=== PATIENT | male | born 1970 | race Caucasian/White ===

== ENCOUNTER 2017-08-03 10:24 | Inpatient (IN) ==
[2017-08-03] MEDS ORDERED: Ondansetron ODT 4 MG TAB.RAPDIS SL ONE (10:57)
--- NOTE | 2017-08-03 11:01 | Emergency Department Note ---
Disposition Clinical Impression: Small bowel obstruction Nausea and vomiting Qualifiers: Vomiting type: unspecified Vomiting Intractability: non-intractable Qualified Code(s): R11.2 - Nausea with vomiting, unspecified Disposition: Admitted As Inpatient Condition: Fair Referrals: Bc Ramirez Jr, MD [Primary Care Provider] - Forms: ED Satisfaction Letter Time of Disposition: 15:05 General Adult HPI - General Chief complaint: ED Shortness of Breath/Dyspnea Stated complaint: multiple complaints Time Seen by Provider: 08/03/17 10:29 Source: patient Limitations: no limitations Nursing Notes Reviewed: Yes Vital Signs Reviewed: Yes - History of Present Illness HPI Narrative: Mr. Patton, 46-year-old male, presents from home for evaluation of nausea, vomiting, upper abdominal pain, dyspnea worse with exertion. Onset last night. He has vomited innumerable times but is able to describe it other than it smells sulfuric. He has thoracic back pain worse with retching. He has upper abdominal pain worse with retching. He also notes left-sided rib pain in the posterior axillary line and his abdominal pain is most prominent in the left upper quadrant; these symptoms remind him of previous episode of pneumonia. PMH: Obesity, remote Kumar-en-Y, bipolar, schizophrenia History of COPD, asthma, CAD, ACS, hypertension, hyperlipidemia ROS: Positive: As above Negative: Fever, chills, loose bowels, headache, neck pains, sick contacts, melena, hematochezia Pain Scale: 9 - Related Data Home Medications Medication Instructions Recorded Confirmed ALPRAZolam [Xanax 1 MG Tablet] 0.5 - 1 mg PO QID PRN 08/03/17 08/03/17 Cyclobenzaprine HCl 10 mg PO TID 08/03/17 08/03/17 [Cyclobenzaprine HCl] HYDROcodone/Acet 10/325 mg [[place] 1 tab PO Q6HR PRN 08/03/17 08/03/17 10-325 mg] Sertraline [Zoloft] 250 mg PO HS 08/03/17 08/03/17 cloZAPine [Clozaril] 600 mg PO HS 08/03/17 08/03/17 Allergies Allergy/AdvReac Type Severity Reaction Status Date / Time No Known Allergies Allergy Verified 02/17/17 13:39 All systems ED: reviewed and negative except as stated. Review of Systems: As Per HPI Past Medical History - Past Medical History Medical history: Reports: non-contributory Psychiatric history: Reports: bipolar, schizophrenia - Social History Smoking Status: Former smoker Smokeless Tobacco Status: No Alcohol use: Reports: none Drug use: Reports: none Physical Exam Vital Signs Reviewed General: Patient is alert, oriented, and in no acute distress. HEENT: No facial asymmetry. Head is normocephalic and atraumatic. Mucosa moist. Trachea midline. Respiratory: Symmetric chest rise with good respiratory effort. Bilateral breath sounds are clear without wheezing, crackles, or rhonchi. Abdomen: Obese. Bowel sounds present normoactive x-4 quadrants. Abdomen is soft, nondistended. Upper abdominal tenderness most prominent in the left upper quadrant. No rebound tenderness, no guarding. No tympany. Musculoskeletal: Spontaneously moving all extremities. Neuro: GCS 15. Skin: Warm, dry, intact. Psych: Patient's affect is appropriate for situation. - General Limitations: no limitations General appearance: alert, in no apparent distress Course Course Narrative: Initial concern is for possible small bowel structure given history of Kumar-en- Y. Perform CT abdomen and pelvis. We will also draw abdominal labs looking for alternate causes. We will control patient's symptoms with nausea. No need for analgesia per patient at this time. CT of the pelvis is concerning for small bowel obstruction just below the Kumar- en-Y anastomosis. I discussed these findings the patient. He is amenable to admission with NG tube. I discussed the patient, his history, clinical condition, and CT findings with the on-call surgeon, Dr. Paredes. He agrees to see the patient as consult medical admission. He specifically requests that the admitting physician call him directly. I discussed the patient with the admitting hospitalist, Dr. Vela, who agrees to accept the patient for continued evaluation and management. Vital Signs Temperature 98.6 F 08/03/17 10:25 Pulse Rate 105 08/03/17 10:25 Respiratory Rate 24 08/03/17 10:25 Blood Pressure 146/72 08/03/17 10:25 O2 Sat by Pulse Oximetry 96 08/03/17 10:25 Temperature 98.6 F 08/03/17 10:25 Pulse Rate 99 08/03/17 15:03 Respiratory Rate 18 08/03/17 15:03 Blood Pressure 162/98 08/03/17 15:03 O2 Sat by Pulse Oximetry 93 08/03/17 15:03 Oxygen Delivery Oxygen Delivery Room Air Medical Decision Making - Lab Data Result diagrams: 08/03/17 11:02 08/03/17 11:02 Lab Results 08/03/17 08/03/17 Range/Units 11:02 11:02 WBC 7.3 (4.3-11.1) K/mcL RBC 4.59 (4.19-5.50) M/mcL Hgb 13.2 (12.9-16.9) g/dL Hct 40.6 (37.5-50.1) % MCV 88.5 (83.0-100.0) fL MCH 28.8 (28.0-33.3) pg MCHC 32.5 (31.6-35.5) g/dL RDW 13.4 (11.5-14.5) % Plt Count 154 (140-400) K/mcL MPV 10.6 (9.4-12.4) fL Immature Gran % 0.3 (0-4) % Seg Neutrophils % 82.5 % Lymphocytes % 12.8 % Monocytes % 4.4 % Eosinophils % 0.0 % Basophils % 0.0 % Neutrophils # 6.1 (1.6-8.9) K/mcL Lymphocytes # 0.9 (0.6-4.6) K/mcL Monocytes # 0.3 (0.0-1.3) K/mcL Eosinophils # 0.0 (0.0-0.6) K/mcL Basophils # 0.0 (0.0-0.2) K/mcL Immature Plt Fraction 6.6 H (1.1-6.1) % Sodium 135 L (136-145) mEq/L Potassium 4.1 (3.5-4.5) mEq/L Chloride 102 (98-109) mEq/L Carbon Dioxide 24 (19-29) mEq/L BUN 11 (8-26) mg/dL Creatinine 0.81 (0.72-1.25) mg/dL Est GFR ( Amer) > 60 (> 60) Est GFR (Non-Af Amer) > 60 (> 60) BUN/Creatinine Ratio 14 (6-26) Glucose 184 H (70-99) mg/dL Calculated Osmolality 284 (280-300) Calcium 8.9 (8.6-10.8) mg/dL Total Bilirubin 0.5 (0.2-1.2) mg/dL Direct Bilirubin 0.5 (0.0-0.5) mg/dL Indirect Bilirubin 0.0 (0.0-1.2) mg/dL AST 30 (5-34) Units/L ALT 19 (0-55) Units/L Alkaline Phosphatase 100 (38-126) Units/L Serum Total Protein 7.0 (6.0-8.3) g/dL Albumin 4.0 (3.5-5.0) g/dL Globulin 3.0 (2.4-3.5) g/dL Albumin/Globulin Ratio 1.3 (1.1-2.2) Lipase < 10 (8-78) Units/L Attestation Statement - Attestation Attestation: Patient was seen with resident physician. I reviewed the history, physical, assessment and plan, and agree with the findings. I also personally evaluated this patient and had [id number] time with this patient. 46-year-old male presents emergency Department one-day history of uncontrolled nausea and vomiting. Patient's also had some midepigastric abdominal pain. He notes this is worse with throwing up. Patient also states that he has a thoracic back pain which he said he had last time he had pneumonia and was concerned that he may have that again. Other than that he denies complaints. On exam vital signs are stable. ENT is unremarkable. Heart and lungs are both normal. Abdomen minimally tender in the midepigastric area. Patient is markedly obese and it is difficult to assess fully. Extremities unremarkable. Neurologically the patient is intact. ED course we will get a chest x-ray to rule out pneumonia [place] CT scan the abdomen and pelvis to get a better sense of what might be causing his epigastric pain usual labs as well. We will treat his nausea and reevaluate the patient. CT scan of the abdomen and pelvis revealed a small bowel obstruction. Labs largely were unremarkable. His nausea was controlled with medication. He is started on IV hydration. We discussed the case with surgery. They recommended an NG tube and admit to medicine. We also then called the internal medicine doctors and arrange for him to be admitted to the hospitalist service. They agreed to accept the patient. Hemodynamically he remained stable while in the emergency department. I agree with the resident physician assessment and plan.
[2017-08-03 11:08] LABS: Hematocrit 40.6 % (37.5-50.1); Hemoglobin 13.2 g/dL (12.9-16.9); Immature Granulocytes % 0.3 % (0-4); Immature Platelets 6.6 % (1.1-6.1); Lymphocytes # 0.9 K/mcL (0.6-4.6); Lymphocytes % 12.8 %; Mean Corpuscular HGB Conc 32.5 g/dL (31.6-35.5); Mean Corpuscular Hemoglobin 28.8 pg (28.0-33.3); Mean Corpuscular Volume 88.5 fL (83.0-100.0); Mean Platelet Volume 10.6 fL (9.4-12.4); Monocytes # 0.3 K/mcL (0.0-1.3); Monocytes % 4.4 %; Neutrophils # 6.1 K/mcL (1.6-8.9); Platelet Count 154 K/mcL (140-400); Red Blood Count 4.59 M/mcL (4.19-5.50); Red Cell Distribution Width 13.4 % (11.5-14.5); Segmented Neutrophils % 82.5 %
[2017-08-03 11:23] LABS: Alanine Aminotransferase 19 Units/L (0-55); Albumin/Globulin Ratio 1.3 (1.1-2.2); Alkaline Phosphatase 100 Units/L (38-126); Aspartate Amino Transferase 30 Units/L (5-34); BUN/Creatinine Ratio 14 (6-26); Bilirubin,Direct 0.5 mg/dL (0.0-0.5); Bilirubin,Total 0.5 mg/dL (0.2-1.2); Blood Urea Nitrogen 11 mg/dL (8-26); Calcium 8.9 mg/dL (8.6-10.8); Carbon Dioxide 24 mEq/L (19-29); Chloride 102 mEq/L (98-109); Glucose 184 mg/dL (70-99); Osmolality,Calculated 284 (280-300); Potassium 4.1 mEq/L (3.5-4.5); Sodium 135 mEq/L (136-145); eGFR For African Americans > 60 (> 60); eGFR For Non-African Americans > 60 (> 60)
[2017-08-03 11:24] LABS: Lipase < 10 Units/L (8-78)
[2017-08-03] MEDS ORDERED: Naloxone 0.4 MG/ML INJ IVP PRN (16:02)
[2017-08-03] MEDS ORDERED: Ondansetron 4 MG/2 ML VIAL IVP PRN (16:02)
[2017-08-03] MEDS ORDERED: 0.9 % Sodium Chloride 500 ML IVC ONE (16:08)
--- NOTE | 2017-08-03 16:16 | Internal Med History&Physical ---
<Amalia Antoine - Last Filed: 08/03/17 18:20> Date of Encounter: 08/03/17 Time of Encounter: 16:15 Assessment and Plan (1) Small bowel obstruction Current visit: Yes Status: Acute 1 . Patient has a past history of gastric bypass in 2000. He has been experiencing nausea vomiting abdominal pain for the past [address] of abdomen did not reveal small bowel obstruction due to jejunal anastomosis in the mid lower abdomen. Surgery has been consult I did speak with Dr. Street. NG has been placed per his request-we will continue low wall suction 2 we will continue nothing by mouth-I did discuss with Dr. Vela patient's psychiatric medication management. We will give psych meds per NG-otherwise nothing by mouth 3 give IV fluids 4 monitor electrolytes (2) Schizophrenia Current visit: No Status: Chronic 1 presently he is stable, we will continue with his home medications Qualifiers: Schizophrenia type: unspecified Qualified Code(s): F20.9 - Schizophrenia, unspecified (3) Chronic pain Current visit: No Status: Chronic 1 patient has standing history of chronic back pain, we will continue with morphine for moderate pain and Dilaudid for severe pain Qualifiers: Chronic pain type: other chronic pain Qualified Code(s): G89.29 - Other chronic pain (4) DVT prophylaxis Current visit: Yes Status: Acute [facility] Internal Medicine - H&P: HPI Chief complaint: N/V Admitted From: Emergency Dept Plans for Post Hospital Care: Home History of present illness: Mr. Patton is a 46 year old male past medical history of morbid obesity gastric bypass bipolar schizophrenia. Patient did have gastric bypass surgery in 2000, [facility] per Dr. Gama Paz. According to the patient he has been experiencing nausea vomiting and upper abdominal pain which is worse after vomiting within the past 24 hours. He began vomiting numerous times throughout the night, he was unable to eat or keep anything down. He denies any hematemesis, hematochezia or melenic stools denies any fevers chills chest pain he has had some dyspnea on exertion. He has been experiencing flatus He presented to the ER with the above complaints. Lab work was unremarkable CT of abdomen was consistent with small bowel obstruction near the jejunal anastomosis in the mid lower abdomen. ER physician did contact the on-call surgeon Dr. Street. NG has been placed with low wall suction. He has been admitted for further workup and evaluation. Presently the patient does not appear to be in any respiratory distress he states that his abdominal pain has improved since she has been placed. I did review this case with Dr. Vela who agrees with plan. Past Med Surg Social Fam HX - Past Medical History Medical history: non-contributory Psychiatric history: bipolar, schizophrenia - Social History Smoking Status: Former smoker Smokeless Tobacco Status: No Alcohol use: none Drug use: none - Family History Father History Unknown: Yes Living Status: Still Living Hx Family Cardiac Disorders: No Hx Family Respiratory Disorders: No Hx Family Cancer: No Hx Family GI Disorders: No Hx Family Genitourinary Disorders: No Hx Family Endocrine Disorder: Yes (DM) Hx Family Musculoskeletal Disorders: No Hx Family Neuromuscular Disorders: No Hx Family Neurologic Disorders: No Hx Family HEENT Disorders: No Hx Family Autoimmune Disorders: No Hx Family Reproductive Disorders: No Hx Family Psychosocial Disorders: No Hx Family Medical Disorders: No Internal Medicine - H&P: Meds ALPRAZolam [Xanax 1 MG Tablet] 0.5 - 1 mg PO QID PRN 08/03/17 [History] Cyclobenzaprine HCl [Cyclobenzaprine HCl] 10 mg PO TID 08/03/17 [History] HYDROcodone/Acet 10/325 mg [[place] 10-325 mg] 1 tab PO Q6HR PRN 08/03/17 [History ] Sertraline [Zoloft] 250 mg PO HS 08/03/17 [History] cloZAPine [Clozaril] 600 mg PO HS 08/03/17 [History] 3 Allergy/AdvReac Type Severity Reaction Status Date / Time No Known Allergies Allergy Verified 02/17/17 13:39 All Systems PM: A 10-system review of systems was performed and is negative for pertinent findings except as documented above in the HPI. - Constitutional Constitutional: no chills, no fever(s), no night sweats - EENT Eyes: no change in vision, no discharge, no pain, no photophobia Nose, mouth and throat: no dysphagia, no nasal discharge, no neck pain, no sore throat - Cardiovascular Cardiovascular ROS IM: dyspnea on exertion, no chest pain, no diaphoresis, no dyspnea, no lightheadedness, no palpitations, no syncope - Respiratory Respiratory: no cough, no dyspnea, no wheezing, no excessive phlegm production - Gastrointestinal Gastrointestinal: abdominal pain, nausea, vomiting - Musculoskeletal Musculoskeletal ROS IM: no numbness, no tingling - Integumentary Integumentary IM: no rash, no unusual bruising - Neurological Neurological ROS: no confusion, no convulsions, no focal weakness, no numbness, no tingling, no tremor(s) - Hematologic/Lymphatic Hematologic/Lymphatic: no easy bruising - Constitutional Vitals: Temp Pulse Resp BP Pulse Ox 98.6 F 99 18 162/98 93 08/03/17 10:25 08/03/17 15:03 08/03/17 15:03 08/03/17 15:03 08/03/17 15:03 General appearance: Present: A&O X 3, morbidly obese, answers questions appropriately - Head Head exam: Present: atraumatic, normocephalic - Eye Eye exam: Present: PERRL, conjuntiva pink, sclera anicteric Pupils: Present: PERRL - Neck Neck exam general surgery: Present: supple, trachea midline. Absent: lymphadenopathy - Respiratory Respiratory exam: Present: CTAB. Absent: accessory muscle use, rales, rhonchi, wheezes - Cardiovascular Cardiovascular exam: Present: RRR, +S1, +S2. Absent: diastolic murmur, gallop, rubs, systolic murmur - GI/Abdominal GI/Abdominal exam: Present: normal bowel sounds, soft, no peritoneal signs. Absent: distended, tenderness - Extremities Exam Extremities exam: Present: warm, radial pulses palpable and symmetrical. Absent : calf tenderness, cyanotic, pedal edema - Neurological Exam Neurological exam: Present: CN II-XII intact, oriented X3, no focal deficits. Absent: pronater drift, facial droop, speech deficit - Skin Skin exam: Present: dry, intact Internal Med - H&P Results - Labs CBC & Chem 7: 08/03/17 11:02 08/03/17 11:02 - Diagnostic Studies Other Images Additional comments: Chest X-Ray 08/03/17 10:51 IMPRESSION: Stable negative chest. D/ / Mika Rinaldi MD / Mika Rinaldi MD Interpreting Provider: Mika Rinaldi MD Abdomen/Pelvis CT 08/03/17 11:02 IMPRESSION: 1. Status post gastric bypass surgery with findings consistent with small-bowel obstruction near the jejunal anastomosis in the mid lower abdomen. 2. No evidence of perforation or abscess. 3. Hepatosplenomegaly with severe hepatic steatosis. D/ / 08/03/2017 12:35:21 Dallas Ahmadi MD / aman Interpreting Provider: Dallas Ahmadi MD <Wayne Vela P - Last Filed: 08/04/17 13:31> Date of Encounter: 08/04/17 Internal Medicine - H&P: HPI History of present illness: Mr. Patton is a 46 year old male All Systems PM: A 10-system review of systems was performed and is negative for pertinent findings except as documented above in the HPI. - Constitutional Vitals: Temp Pulse Resp BP Pulse Ox 98.1 F 97 20 126/81 95 08/04/17 10:55 08/04/17 10:55 08/04/17 10:55 08/04/17 10:55 08/04/17 10:55 Internal Med - H&P Results - Labs CBC & Chem 7: 08/04/17 05:09 08/04/17 05:09 Labs: Short CBC 08/04/17 Range/Units 05:09 WBC 8.4 (4.3-11.1) K/mcL Hgb 12.3 L (12.9-16.9) g/dL Hct 38.6 (37.5-50.1) % Plt Count 129 L (140-400) K/mcL Neutrophils # 7.0 (1.6-8.9) K/mcL BMP 08/04/17 05:09 Sodium 139 Potassium 3.8 Chloride 106 Carbon Dioxide 24 BUN 10 Creatinine 0.79 Glucose 172 H Calcium 7.8 L Urine 08/04/17 Range/Units 04:34 Urine Color Yellow (Yellow) Urine Clarity Clear (Clear) Urine pH 6.0 (5.0-8.0) pH Units Ur Specific [place] 1.019 (1.010-1.025) Urine Protein Negative (Neg-Trace) mg/dL Urine Glucose (UA) Normal (Normal) mg/dL - Attending Attestation I examined this patient and my medical decision-making was reviewed with the Resident Physician/ [employer] [employer]. I agree with the documented findings, disposition and treatment plan as described except to the extent set forth below.
[2017-08-03] MEDS: 0.9 % Sodium Chloride 1,000 ML IVC SCH (18:23)
--- NOTE | 2017-08-03 19:16 | Event Note ---
Date of Encounter: 08/03/17 Time of Encounter: 16:45 Was notified per nursing staff that patient's NG had come out and he was refusing replacement. I did speak with the patient and explained the medicall necessity of the NG. He verbalizes understanding however he continued to refuse. Dr. Vela also speaks with patient and again reemphasizes the importance of NG. Patient continues to refuse placement. Dr. Smith did speak with Dr. Street via telephone and explained and she was out and the patient refusing replacement. Per Mirian- Dr Paredes OK to leave NG out
[2017-08-03] MEDS: ALPRAZolam 1 MG TABLET PO PRN (20:56)
[2017-08-03] MEDS: cloZAPine 100 MG TABLET PO SCH (20:58)
[2017-08-04] MEDS: 0.9 % Sodium Chloride 1,000 ML IVC SCH ×2 (04:32→12:32)
[2017-08-04 04:46] LABS: Bilirubin,Urine Negative (Negative); Blood,Urine Negative (Negative); Clarity,Urine Clear (Clear); Color,Urine Yellow (Yellow); Glucose,Urine (UA) Normal (Normal); Ketones,Urine Negative (Negative); Leukocyte Esterase,Urine Negative (Negative); Nitrite,Urine Negative (Negative); Protein,Urine Negative (Neg-Trace); Specific Gravity,Urine 1.019 (1.010-1.025); Urobilinogen,Urine Normal (Normal)
[2017-08-04 05:36] LABS: Basophils % 0.1 %; Hematocrit 38.6 % (37.5-50.1); Hemoglobin 12.3 g/dL (12.9-16.9); Immature Granulocytes % 0.4 % (0-4); Lymphocytes % 11.7 %; Mean Corpuscular HGB Conc 31.9 g/dL (31.6-35.5); Mean Corpuscular Hemoglobin 28.7 pg (28.0-33.3); Mean Platelet Volume 10.9 fL (9.4-12.4); Monocytes # 0.4 K/mcL (0.0-1.3); Monocytes % 4.8 %; Platelet Count 129 K/mcL (140-400); Red Blood Count 4.29 M/mcL (4.19-5.50); Red Cell Distribution Width 13.6 % (11.5-14.5)
[2017-08-04 05:45] LABS: BUN/Creatinine Ratio 13 (6-26); Blood Urea Nitrogen 10 mg/dL (8-26); Calcium 7.8 mg/dL (8.6-10.8); Carbon Dioxide 24 mEq/L (19-29); Chloride 106 mEq/L (98-109); Glucose 172 mg/dL (70-99); Magnesium 1.8 mg/dL (1.6-2.6); Osmolality,Calculated 291 (280-300); Phosphorous 2.5 mg/dL (2.3-4.7); Potassium 3.8 mEq/L (3.5-4.5); Sodium 139 mEq/L (136-145); eGFR For African Americans > 60 (> 60); eGFR For Non-African Americans > 60 (> 60)
[2017-08-04] MEDS: *HR* Enoxaparin 40 MG/0.4 ML SYRINGE SQ SCH (06:35)
[2017-08-04] MEDS: Pantoprazole 40 MG VIAL IVP SCH (08:25)
[2017-08-04] MEDS: *HR* HYDROmorphone (PF) 1 MG/ML SYRINGE IVP PRN ×3 (08:26→16:34)
--- NOTE | 2017-08-04 12:13 | General Surgery Consult Note ---
Date of Encounter: 08/04/17 Time of Encounter: 12:09 History of Present Illness Consult date: 08/03/17 Requesting physician: Robert Meza History of present illness: Patient seen and examined. NG placed in ED removed by patient, re insertion refused by patient. Abdominal pain/distress, N&V resolved since admission Abdomen soft, nontender. Active bowel sounds. CT personally reviewed with [facility]; labs also reviewed Recommendation - SBFT More complete note pertaining to my evaluation and discussion with the patient pending. Past Med Surg Social Fam HX - Past Medical History Medical history: non-contributory Psychiatric history: bipolar, schizophrenia - Social History Smoking Status: Former smoker Smokeless Tobacco Status: No Alcohol use: none Drug use: none - Family History Father History Unknown: Yes Living Status: Still Living Hx Family Cardiac Disorders: No Hx Family Respiratory Disorders: No Hx Family Cancer: No Hx Family GI Disorders: No Hx Family Genitourinary Disorders: No Hx Family Endocrine Disorder: Yes (DM) Hx Family Musculoskeletal Disorders: No Hx Family Neuromuscular Disorders: No Hx Family Neurologic Disorders: No Hx Family HEENT Disorders: No Hx Family Autoimmune Disorders: No Hx Family Reproductive Disorders: No Hx Family Psychosocial Disorders: No Hx Family Medical Disorders: No Medications and Allergies ALPRAZolam [Xanax 1 MG Tablet] 0.5 - 1 mg PO QID PRN 08/03/17 [History] Cyclobenzaprine HCl [Cyclobenzaprine HCl] 10 mg PO TID 08/03/17 [History] HYDROcodone/Acet 10/325 mg [[place] 10-325 mg] 1 tab PO Q6HR PRN 08/03/17 [History ] Sertraline [Zoloft] 250 mg PO HS 08/03/17 [History] cloZAPine [Clozaril] 600 mg PO HS 08/03/17 [History] 3 Allergy/AdvReac Type Severity Reaction Status Date / Time No Known Allergies Allergy Verified 02/17/17 13:39 Review of Systems All systems PM: A 10-system review of systems was performed and is negative for pertinent findings except as documented above in the HPI. General Surgery Exam Initial Vital Signs Temp Pulse Resp BP Pulse Ox 98.6 F 105 24 146/72 96 08/03/17 10:25 08/03/17 10:25 08/03/17 10:25 08/03/17 10:25 08/03/17 10:25 Exam Initial Vital Signs Temp Pulse Resp BP Pulse Ox 98.6 F 105 24 146/72 96 08/03/17 10:25 08/03/17 10:25 08/03/17 10:25 08/03/17 10:25 08/03/17 10:25 Results - Labs 08/04/17 05:09 08/04/17 05:09 Abnormal lab results Hgb 12.3 g/dL (12.9-16.9) L 08/04/17 05:09 Plt Count 129 K/mcL (140-400) L 08/04/17 05:09 Immature Plt Fraction 6.6 % (1.1-6.1) H 08/03/17 11:02 Glucose 172 mg/dL (70-99) H 08/04/17 05:09 POC Glucose 117 (58-89) H 08/04/17 11:52 Calcium 7.8 mg/dL (8.6-10.8) L 08/04/17 05:09 Diabetes panel 08/04/17 Range/Units 05:09 Sodium 139 (136-145) mEq/L Potassium 3.8 (3.5-4.5) mEq/L Chloride 106 (98-109) mEq/L Carbon Dioxide 24 (19-29) mEq/L BUN 10 (8-26) mg/dL Creatinine 0.79 (0.72-1.25) mg/dL Glucose 172 H (70-99) mg/dL Calcium 7.8 L (8.6-10.8) mg/dL Calcium panel 08/04/17 Range/Units 05:09 Calcium 7.8 L (8.6-10.8) mg/dL Phosphorus 2.5 (2.3-4.7) mg/dL Pituitary panel 08/04/17 Range/Units 05:09 Sodium 139 (136-145) mEq/L Potassium 3.8 (3.5-4.5) mEq/L Chloride 106 (98-109) mEq/L Carbon Dioxide 24 (19-29) mEq/L BUN 10 (8-26) mg/dL Creatinine 0.79 (0.72-1.25) mg/dL Glucose 172 H (70-99) mg/dL Calcium 7.8 L (8.6-10.8) mg/dL Adrenal panel 08/04/17 Range/Units 05:09 Sodium 139 (136-145) mEq/L Potassium 3.8 (3.5-4.5) mEq/L Chloride 106 (98-109) mEq/L Carbon Dioxide 24 (19-29) mEq/L BUN 10 (8-26) mg/dL Creatinine 0.79 (0.72-1.25) mg/dL Glucose 172 H (70-99) mg/dL Calcium 7.8 L (8.6-10.8) mg/dL All other labs normal. Consult Discharge Plan - Plan Referrals: Bc Ramirez Jr, MD [Primary Care Provider] -
[2017-08-04] MEDS: ALPRAZolam 1 MG TABLET PO PRN ×2 (12:31→16:34)
[2017-08-04] MEDS: cloZAPine 100 MG TABLET PO SCH (21:42)
[2017-08-04] MEDS: *HR* Morphine 2 MG/ML SYRINGE IVP PRN (21:51)
[2017-08-05] MEDS: 0.9 % Sodium Chloride 1,000 ML IVC SCH (01:46)
--- NOTE | 2017-08-05 05:19 | Internal Med Progress Note ---
Date of Encounter: 08/04/17 Time of Encounter: 17:40 - Assessment and plan (1) Small bowel obstruction Current Visit: Yes Status: Acute Assessment and plan: Doing better. Patient pulled NG tube out shortly after admission. He refuses to put it back in. He insists "I feel fine". Surgery team following, recommendations appreciated. Sbft pending read. (2) Schizophrenia Current Visit: No Status: Chronic Assessment and plan: Clozapine Qualifiers: Schizophrenia type: unspecified Qualified Code(s): F20.9 - Schizophrenia, unspecified (3) Chronic pain Current Visit: No Status: Chronic Qualifiers: Chronic pain type: other chronic pain Qualified Code(s): G89.29 - Other chronic pain (4) DVT prophylaxis Current Visit: Yes Status: Acute - Subjective Interval history: No acute events, Just returned from SBFT. No complaints. - Constitutional Vitals: Temp Pulse Resp BP Pulse Ox 97.9 F 99 18 160/79 91 08/05/17 03:25 08/05/17 03:25 08/05/17 03:25 08/05/17 03:25 08/05/17 03:25 General appearance: Present: A&O X 3, morbidly obese, answers questions appropriately Exam: Morbidly obese CVS: RRR Lungs: CTAB Abd: surgical scars present midabdomen, soft, nt/nd Ext: no edema Internal Medicine: Result - Labs CBC & Chem 7: 08/04/17 05:09 08/04/17 05:09 Labs: Short CBC 08/04/17 Range/Units 05:09 WBC 8.4 (4.3-11.1) K/mcL Hgb 12.3 L (12.9-16.9) g/dL Hct 38.6 (37.5-50.1) % Plt Count 129 L (140-400) K/mcL Neutrophils # 7.0 (1.6-8.9) K/mcL BMP 08/04/17 05:09 Sodium 139 Potassium 3.8 Chloride 106 Carbon Dioxide 24 BUN 10 Creatinine 0.79 Glucose 172 H Calcium 7.8 L - Impressions Impressions Small Bowel X-Ray 08/04/17 12:13 IMPRESSION: On the country singer film, proximal small bowel loops in the left upper quadrant were dilated. By the end of the exam. Proximal small bowel dilation is no longer evident. In addition, contrast reaches the colon by the end of the exam without evidence of a high-grade obstruction. D/ / Serge Ramirez MD / Serge Ramirez MD Interpreting Provider: Serge Ramirez MD Consult Discharge Plan - Plan Referrals: Bc Ramirez Jr, MD [Primary Care Provider] -
[2017-08-05] MEDS: ALPRAZolam 1 MG TABLET PO PRN (05:23)
[2017-08-05] MEDS: *HR* Enoxaparin 40 MG/0.4 ML SYRINGE SQ SCH (05:26)
[2017-08-05] MEDS: Pantoprazole 40 MG VIAL IVP SCH (08:31)
[2017-08-05] MEDS: *HR* Morphine 2 MG/ML SYRINGE IVP PRN (08:32)
[2017-08-05 11:43] VITALS: BP 127/78
[2017-08-05] MEDS ORDERED: 0.9 % Sodium Chloride 1,000 ML IVC SCH (12:06)
[2017-08-05] MEDS ORDERED: 0.9 % Sodium Chloride 1,000 ML ONE (12:38)
--- NOTE | 2017-08-05 13:44 | General Surgery Progress Note ---
Date of Encounter: 08/05/17 Time of Encounter: 13:39 Subjective Patient reports: tolerating liquids well Narrative: General Surgery - patient feeling well, denies any abdominal pain, no recurrent nausea vomiting Tolerating clear liquids; Several BMs thru the night and today Patient anxious to be discharged home Small bowel follow-through were reviewed with [facility] including 2V abdominal films this AM. Oral contrast has passed thru to the colon. Prior small bowel dilatation resolved. Abdominal x-rays completed this AM show air filled bowel and colon. No obvious obstructive pattern. Recommendation - Full liquid diet, may advance as tolerated Will sign off as no surgical intervention required or anticipated No surgical follow up post discharge - patient should follow up with his PCP. Objective Vital Signs - Last 8 Hours Temp Pulse Resp BP Pulse Ox 08/05/17 11:42 98.2 F 100 16 127/78 96 08/05/17 07:05 98.6 F 98 22 144/83 94 Intake and Output 08/04/17 08/05/17 08/05/17 23:59 07:59 15:59 Intake Total 1120 / 1120 120 / 120 1360 / 1360 Output Total 0 / 0 0 / 0 0 / 0 Balance 1120 / 1120 120 / 120 1360 / 1360 Intake: IV Fluids 1000 / 1000 1000 / 1000 0.9 % Sodium Chloride 1,000 ML 1000 / 1000 1000 / 1000 @ 100 mls/hr IVC .Q10H RASHMI Rx#: [id number] Oral 120 / 120 120 / 120 360 / 360 Output: Urine 0 / 0 0 / 0 0 / 0 Other: Meal Dinner NPO Breakfast Stool Size Large Stool Consistency liquid Stool Color Dieudonne Colored # Voids 1 # Bowel Movements 1 Weight 201.077 kg Blood Glucose* 143 Patient Weight 08/05/17 23:59 Weight 201.077 kg - Labs 08/04/17 05:09 08/04/17 05:09 Consult Discharge Plan - Plan Referrals: Bc Ramirez Jr, MD [Primary Care Provider] -
--- NOTE | 2017-08-05 14:11 | Discharge Summary ---
Date of Encounter: 08/05/17 Time of Encounter: 14:00 - Discharge Diagnosis (1) Small bowel obstruction Priority: Primary Status: Resolved (2) Schizophrenia Priority: Secondary Status: Chronic Qualifiers: Schizophrenia type: unspecified Qualified Code(s): F20.9 - Schizophrenia, unspecified (3) Chronic pain Priority: Secondary Status: Chronic Qualifiers: Chronic pain type: other chronic pain Qualified Code(s): G89.29 - Other chronic pain (4) DVT prophylaxis Priority: Secondary Status: Acute - Discharge Medications Home Medications: ALPRAZolam [Xanax 1 MG Tablet] 0.5 - 1 mg PO QID PRN 08/03/17 [History] Cyclobenzaprine HCl 10 mg PO TID 08/03/17 [History] HYDROcodone/Acet 10/325 mg [[place] 10-325 mg] 1 tab PO Q6HR PRN 08/03/17 [History ] Sertraline [Zoloft] 250 mg PO HS 08/03/17 [History] cloZAPine [Clozaril] 600 mg PO HS 08/03/17 [History] Allergies/Adverse Reactions: 3 Allergy/AdvReac Type Severity Reaction Status Date / Time No Known Allergies Allergy Verified 02/17/17 13:39 Procedures/tests Complete & Pending: Procedures Performed prior 72 hours Category Date Time Status EKG [ECG 12 lead ECG] [ECG] Routine Y 08/03/17 16:10 Ordered Date of admission: 08/03/17 16:02 Primary care physician: Bc Ramirez Jr, MD Consults: 08/03/17 14:37 Consult to Surgery [CONS] Routine Consulting Provider: Surgery [facility] Reason for Consult: SBO. Remote Reux-En-Y. Time Notified: 14:37 Call Completed: Yes Discharging clinician: Miki Bryan Anticipated date of discharge: 08/05/17 - Patient Status Disposition: Home, Self-Care Condition: Good Functional capacity at discharge: independent ambulation Overall status at discharge: patient is progressing back to baseline - Discharge Instructions Follow Up With: Bc Ramirez Jr, MD [Primary Care Provider] - (in 1 -2 weeks) - Diet and Activity Activity: increase activity as tolerated Diet: advance to your usual diet, low fat, low cholesterol, low salt diet Hospital course: Mr. Patton is a 46 year old male patient with a history of moderate obesity status post gastric bypass, bipolar disorder and should refrain was admitted here with abdominal pain and nausea and vomiting concerning for small bowel obstruction. Patient was managed conservatively with nasogastric tube connected to low intermittent wall suction. However patient cleaned out NG tube at night and since then he required one. His obstruction has slowly resolved spontaneously. He is doing much better and is tolerating oral diet well. Small bowel follow-through done yesterday showed no obstruction. Abdominal x-ray done today shows presence of ileus. Patient is having bowel movements. No indication for surgery. His diet can be advanced as tolerated. Clinically stable for discharge home. He will follow-up with his primary care provider for management of his chronic medical conditions. - Time Spent with Patient Total time spent providing and/or coordinating discharge services: Less than 30 minutes (20 min) - Constitutional Vitals: Temp Pulse Resp BP Pulse Ox 98.2 F 100 16 127/78 96 08/05/17 11:42 08/05/17 11:42 08/05/17 11:42 08/05/17 11:42 08/05/17 11:42 General appearance: Present: A&O X 3, morbidly obese, answers questions appropriately - Neck Neck exam general surgery: Present: supple, trachea midline. Absent: lymphadenopathy - Respiratory Respiratory exam: Present: CTAB. Absent: accessory muscle use, rales, rhonchi, wheezes - Cardiovascular Cardiovascular exam: Present: RRR, +S1, +S2. Absent: diastolic murmur, gallop, rubs, systolic murmur - GI/Abdominal GI/Abdominal exam: Present: normal bowel sounds, soft, no peritoneal signs. Absent: distended, tenderness
[2017-08-05] MEDS ORDERED: FLUARIX QUAD 2017-18 36MOS UP/PF 0.5 ML SYRINGE IM ONE (14:22)
== END 2017-08-05 15:29 | disposition home or self-care (01) | DRG 389 ==
LOC: 3ANU 10:24 → EMEROO 10:24 → 3ANU 15:36 → SUATTDRO 16:02
PROVIDERS: ADMIT Nurse Practitioner Acute Care; ATTEND Internal Medicine